=== PATIENT | female | born 1970 | race Two or more races ===

== ENCOUNTER 2025-03-21 07:00 | Outpatient (CLI) | payer OTHER ==
[~2025-03-21] VITALS: Ht 165.1 cm; Wt 118.4 kg
[2025-03-21 11:40] LABS: URINE APPEARANCE Clear; URINE BILIRRUBIN Small (NEGATIVE); URINE BLOOD NHT; URINE COLOR Dark Yellow; URINE GLUCOSE Negative (NEGATIVE); URINE KETONE Trace (NEGATIVE); URINE LEUKOCYTE Trace; URINE NITRATE Negative; URINE PROTEIN Trace (NEGATIVE); URINE UROBILINOGEN 0.2 E.U./dl
[2025-03-21 11:44] LABS: BASO % 0.2 % (0.1-1.2); EOS # 0.08 (0.04-0.54); EOS % 0.7 % (0.7-7.0); LYMPH # 3.39 (1.18-3.74); LYMPH % 29.9 % (19.3-53.1); MEAN PLATELET VOLUME 9.60 fl (9.4-12.4); MONO # 0.88 (0.24-0.82); MONO % 7.8 % (4.7-12.5); NEUT # 6.94 (1.56-6.13); NEUT % 61.0 % (34.0-71.1); RED CELL DISTRIBUTION WIDTH 14.1 % (11.6-14.4)
[2025-03-21 11:46] LABS: URINE BACTERIA 344.3 uL (0.0-1933); URINE EPITHELIAL CELLS 51.0 uL (0.0-38.8); URINE RBC 31.3 uL (0.0-20.8); URINE WBC 126.1 uL (0.0-23.2)
[2025-03-21 12:05] LABS: URINE CAST 1.31 uL (0.0-1.40)
[2025-03-21 12:06] LABS: TYPE CELLS SQUAMOUS; URINE CRYSTALS FEW /HPF
[2025-03-21 12:32] LABS: INR 1.04
[2025-03-21] MEDS ORDERED: ZYRTEC10 M3 PO (12:39)
[2025-03-21 12:40] LABS: BUN CREA RATIO 18.0 (7.0-25.0); CREATININE SERUM 0.98 mg/dL (0.55-1.02); GFR 58.92; GLUCOSE FASTING 89.0 mg/dL (65-100); OSMOLALITY SERUM 284.0 MOSM/KG (275-295)
[2025-03-21] MEDS ORDERED: CLONAZEPAM0.5 MG PO (12:40)
[2025-03-21] MEDS ORDERED: ZOLOFT50 MG PO (12:40)
[2025-03-21] MEDS ORDERED: SINGULAIR10 MG PO (12:42)
[2025-03-21] MEDS ORDERED: BUSPIRONE HCL5 MG PO (12:42)
[2025-03-21] MEDS ORDERED: NABUMETONE750 MG PO (12:43)
[2025-03-21 12:47] VITALS: BP 122/81
== END 2025-03-21 07:15 | disposition home or self-care (01) ==
LOC: RAD 07:00 → ADM 09:15 → EDSTATUS 03-31 09:15 → CIR.AMB 03-31 09:15
PROVIDERS: ATTEND Otolaryngology Otology & Neurotology
DX: J34.89 Other specified disorders of nose and nasal sinuses (principal); J34.2 Deviated nasal septum; J34.3 Hypertrophy of nasal turbinates